=== PATIENT | female | born 1975 | race Caucasian/White ===

== ENCOUNTER 2021-03-01 04:46 | Emergency (ER) | payer OTHER, MEDICAID ==
[~2021-03-01] VITALS: Ht 172.7 cm; Wt 65.8 kg
[2021-03-01] MEDS ORDERED: MORPHINE SULFATE INJ 4 MG/ML DISP.SYRIN ONE (05:06)
[2021-03-01] MEDS ORDERED: VANCOMYCIN 1 GM VIAL ONE (05:06)
[2021-03-01] MEDS ORDERED: ONDANSETRON HCL/PF 4 MG/2 ML VIAL ONE (05:06)
--- NOTE | 2021-03-01 05:13 | NUR ---
PATIENT CAME TO ER BED 10 C/O LEFT MCKEON PAIN W/ REDNESS, SWOLLEN, AND WARMTH. PATIENT STATES THAT SHE HAS A HX OF HEROIN IV DRUG USE. PATIENT IS AAOX4. NO SOB. AMBULATORY WITH A LIMP. PATIENT IS BREATHING EVENLY AND UNLABORED ON ROOM AIR. CONNECTED TO THE MONITOR.
--- NOTE | 2021-03-01 05:20 | NUR ---
ADMISSION PACKET PROVIDED TO ADMITTING DEPARTMENT
[2021-03-01] MEDS ORDERED: ONDANSETRON HCL/PF 4 MG/2 ML VIAL IV ONE (05:30)
[2021-03-01] MEDS ORDERED: VANCOMYCIN 1 GM in IV D5W 250 ML IV ONE (05:30)
[2021-03-01] MEDS ORDERED: MORPHINE SULFATE INJ 2 MG/ML DISP.SYRIN IV ONE (05:30)
[2021-03-01 06:00] LABS: BASOPHILS # (AUTO) 0.2 /CMM (0.0-0.2); BASOPHILS % (AUTO) 0.7 % (0.0-2.0); EOSINOPHILS % (AUTO) 0.1 % (0.0-6.0); HEMATOCRIT 39 % (33-45); HEMOGLOBIN 12.5 g/dL (11.5-14.8); LYMPHOCYTES # (AUTO) 0.8 /CMM (0.8-4.8); LYMPHOCYTES % (AUTO) 3.6 % (20.0-44.0); MEAN CORPUSCULAR HGB CONC 33 g/dl (31.0-36.0); MEAN CORPUSCULAR VOLUME 86 fL (82-100); MONOCYTES # (AUTO) 0.9 /CMM (0.1-1.30); MONOCYTES % (AUTO) 4.1 % (2.0-12.0); NEUTROPHILS % (AUTO) 91.5 % (43.0-81.0); PLATELET COUNT (AUTO) 259 /CMM (150-450); WHITE BLOOD COUNT (AUTO) 21.9 K/uL (4.3-11.0)
--- NOTE | 2021-03-01 06:05 | NUR ---
CLINICAL INFORMATION PROVIDED TO CLINICAL EXERCISE PHYSIOLOGIST AYANNA. PER AYANNA, PT CAPITATED TO [facility].
[2021-03-01 06:15] LABS: ALBUMIN 3.8 g/dL (3.4-5.0); BILIRUBIN,DIRECT 0.2 mg/dL (0.0-0.2); BILIRUBIN,TOTAL 0.5 mg/dL (0.2-1.0); CREATININE 1.2 mg/dL (0.6-1.3); POTASSIUM 3.9 mmol/L (3.5-5.1); TOTAL PROTEIN, SERUM 8.9 g/dL (6.4-8.2)
[2021-03-01 06:20] LABS: CALCIUM, SERUM 9.4 mg/dL (8.5-10.1)
--- NOTE | 2021-03-01 07:41 | NUR ---
[phone] Sakshi from [facility]
--- NOTE | 2021-03-01 08:43 | NUR ---
PATIENT RESTING, A/OX4, IN NO DISTRESS. FOOD TRAY PROVIDED.
--- NOTE | 2021-03-01 10:12 | NUR ---
FAXED COVID RESULT TO [facility].
--- NOTE | 2021-03-01 12:15 | NUR ---
Patient Tranfers to outside Facility [facility] [id number] # for report [phone]
--- NOTE | 2021-03-01 12:29 | NUR ---
ETA 90M[facility].
--- NOTE | 2021-03-01 13:16 | NUR ---
REPORT GIVEN TO HERIBERTO DIAZ FOR [facility].
[2021-03-01 13:37] VITALS: BP 117/52
--- NOTE | 2021-03-01 14:03 | NUR ---
REPORT GIVEN TO PRIVATE CLIENT ADVISOR. PATIENT A/OX4, BREATHING EVEN AND UNLABORED, NO SOB NOTED. KEPT COMFORTABLE. TRANSFERRED TO [facility].
== END 2021-03-01 14:13 | disposition short-term general hospital (02) ==
LOC: ER 05:01
DX: L03.116 Cellulitis of left lower limb (principal); Z20.822 Contact with and (suspected) exposure to COVID-19; Z79.891 Long term (current) use of opiate analgesic
CPT/HCPCS: 36415; 80048; 80076; 83605; 85025; 85730; 87040 ×2; 87081; 87426; 96365; 96375; 99285; C9803; J2270; J2405; J3370

== ENCOUNTER 2021-05-09 00:59 | Emergency (ER) | payer OTHER ==
[~2021-05-09] VITALS: Ht 172.7 cm; Wt 68.0 kg
[2021-05-09 01:11] VITALS: BP 129/76
[2021-05-09] MEDS ORDERED: CEPH500T PO (01:24)
[2021-05-09] MEDS ORDERED: SULF1TAB48 PO (01:24)
== END 2021-05-09 01:30 | disposition home or self-care (01) ==
LOC: ER 01:01
DX: L03.116 Cellulitis of left lower limb (principal); F11.10 Opioid abuse, uncomplicated

== ENCOUNTER 2023-06-22 16:50 | Emergency (ER) | payer OTHER ==
[~2023-06-22 16:50] MED LIST: CEPH500T PO; SULF1TAB48 PO
== END 2023-06-22 18:53 | disposition left against medical advice (07) ==
LOC: ER 16:52
DX: Z53.21 Procedure and treatment not carried out due to patient leaving prior to being seen by health care provider (principal)